=== PATIENT | male | born 1950 | race Caucasian/White ===

== ENCOUNTER 2017-06-20 11:48 | Emergency (ER) | payer MEDICARE ==
[2017-06-20 12:14] VITALS: BP 134/65
--- NOTE | 2017-06-20 12:38 | UC ---
Back Pain HPI - HPI Summary HPI Summary: Sharp stabbing mid right side back pain---began last week after cutting up a deer believes he twisted wrong, does not radiate certain positions make it worse. - History of Current Complaint Chief Complaint: UCBackPain Stated Complaint: back pain Time Seen by Provider: 06/20/17 12:20 Hx Obtained From: Patient Onset/Duration: Gradual Onset, Lasting Days - 7, Still Present Timing: Intermittent Severity Initially: Moderate Severity Currently: Moderate Back Pain: Is Discrete @ Character: Aching, Spasmodic, Stiffness Aggravating Factor(s): Movement Alleviating Factor(s): Rest, Position Associated Signs And Symptoms: Positive: Negative - Allergies/Home Medications Allergies/Adverse Reactions: Allergies Allergy/AdvReac Type Severity Reaction Status Date / Time Povidone Iodine Allergy Severe Swelling Verified 06/20/17 12:13 [From Betadine] Home Medications: Home Medications Pioglitazone TAB* [Actos TAB*] 30 mg PO DAILY 06/20/17 [History Confirmed ] PMH/Surg Hx/FS Hx/Imm Hx Endocrine History: Diabetes, Hypothyroidism, Dyslipidemia Cardiovascular History: Hypertension - Surgical History Surgical History: Yes Surgery Procedure, Year, and Place: RCT repair--ROTATOR CUFF REPAIR. Pneumothorax 1969, carpel tunnel 1971 - Family History Known Family History: Positive: None - Social History Occupation: Retired Lives: With Family Alcohol Use: None Substance Use Type: None Smoking Status (MU): Former Smoker Type: Cigarettes Length of Time of Smoking/Using Tobacco: 40 years When Did the Patient Quit Smoking/Using Tobacco: 9 years ago - Immunization History Most Recent Influenza Vaccination: [id number] Most Recent Tetanus Shot: AUG 2013 Review of Systems Constitutional: Negative Skin: Negative Eyes: Negative ENT: Negative Respiratory: Negative Cardiovascular: Negative Gastrointestinal: Negative Genitourinary: Negative Motor: Negative Neurovascular: Negative Musculoskeletal: Negative Neurological: Negative Psychological: Negative Is Patient Immunocompromised?: No All Other Systems Reviewed And Are Negative: Yes Physical Exam Triage Information Reviewed: Yes Appearance: Well-Appearing, Well-Nourished, Pain Distress - mild Vital Signs: Initial Vital Signs Temp 98 F 06/20/17 12:08 Pulse 72 06/20/17 12:08 Resp 16 06/20/17 12:08 BP 134/65 06/20/17 12:08 Pulse Ox 98 06/20/17 12:08 Vital Signs Reviewed: Yes Eye Exam: Normal Eyes: Positive: Conjunctiva Clear ENT Exam: Normal ENT: Positive: Normal ENT inspection, Hearing grossly normal. Negative: Tonsillar swelling, Tonsillar exudate, Trismus, Muffled voice, Hoarse voice Dental Exam: Normal Neck exam: Normal Neck: Positive: Supple, Nontender Respiratory Exam: Normal Respiratory: Positive: Chest non-tender, Lungs clear, Normal breath sounds, No respiratory distress, No accessory muscle use Cardiovascular Exam: Normal Cardiovascular: Positive: RRR, No Murmur, Pulses Normal, Brisk Capillary Refill Abdominal Exam: Normal Musculoskeletal Exam: Normal Musculoskeletal: Positive: Strength Intact, ROM Intact, No Edema Neurological Exam: Normal Neurological: Positive: Alert, Muscle Tone Normal Psychological Exam: Normal Skin Exam: Normal Diagnostics - Radiology No standard instances Xray Interpretation: Positive (See Comments) - no evidence of renal stones, some degenerative lumbar changes Back Pain Course/Dx - Course Course Of Treatment: muscle relaxer, pain med, follow hematria with pcp/urology - Differential Dx/Diagnosis Provider Diagnoses: lumbar strain, hematuria Discharge - Discharge Plan Condition: Stable Disposition: HOME Prescriptions: Hydrocodone-Acetaminophen [Hydrocodone/Acetaminophen 5-325 mg] 1 tab PO Q6HR PRN #15 tab MDD 4 PRN Reason: pain tiZANidine TAB* [Zanaflex TAB*] 2 mg PO TID PRN #15 tab PRN Reason: muscle spasm Patient Education Materials: Low Back Strain (ED), Hematuria (ED), Muscle Spasm (ED), Lower Back Exercises (ED), Core Strengthening Exercises (ED) Referrals: Bret Li MD [Primary Care Provider] - 1 Week
--- NOTE | 2017-06-20 12:58 | RAD ---
INDICATION: Back pain COMPARISON: None. TECHNIQUE: 3 views of the thoracic spine were obtained. FINDINGS: The lower thoracic and lumbar spine exhibits approximately 9 degrees of levoconvex curvature with the apex at the T12 vertebral body. The vertebral bodies are otherwise adequately aligned on the AP and lateral views. Degenerative changes include loss of intervertebral disc height at the lower thoracic and lumbar spine. There is anterior marginal osteophyte formation at the lower thoracic spine that appears progressive when compared to the August 19, 2013 radiograph. IMPRESSION: Degenerative changes of the lower thoracic and lumbar spine worse when compared to the August 19, 2013 radiograph.
--- NOTE | 2017-06-20 14:11 | RAD ---
Indication: Back pain, hematuria. CT of the abdomen and pelvis was performed without oral or IV contrast administration. Coronal and sagittal reconstructed images were obtained. Lung bases demonstrate no pleural fluid, nodules or masses. Heart is of normal size without evidence of pericardial effusion. Small right pleural effusion is noted. Liver is normal in size. No focal lesions or intrahepatic duct dilatation is noted. The gallbladder is partially contracted. No pericholecystic fluid or wall thickening is noted. The pancreas demonstrates no mass or pancreatic ductal dilatation. The common duct is not dilated. The spleen is normal in size. No adrenal lesions are noted. The kidneys demonstrate no hydronephrosis. Atherosclerotic aorta is noted. No retroperitoneal adenopathy is noted. CT of the pelvis demonstrates no retroperitoneal or pelvic lymphadenopathy. Diverticulosis without definite evidence of diverticulitis is noted. The appendix is visualized and is normal. The prostate is prominent with calcifications in the prostate. No hernias are noted. IMPRESSION: No evidence of obstructive uropathy is noted. Diverticulosis without definite evidence of diverticulitis.
== END 2017-06-20 13:56 | disposition home or self-care (01) ==
LOC: UCCORT 11:48
DX: S39.012A Strain of muscle, fascia and tendon of lower back, initial encounter (principal); X58.XXXA Exposure to other specified factors, initial encounter; Y92.9 Unspecified place or not applicable; R31.9 Hematuria, unspecified; E11.9 Type 2 diabetes mellitus without complications; E03.9 Hypothyroidism, unspecified; E78.5 Hyperlipidemia, unspecified; I10 Essential (primary) hypertension; Z87.891 Personal history of nicotine dependence
CPT/HCPCS: 72080; 74176; 81003; 99212; G0463

== ENCOUNTER 2018-10-13 09:17 | Emergency (ER) | payer MEDICARE ==
[2018-10-13 09:49] VITALS: BP 135/72
--- NOTE | 2018-10-13 10:27 | UC ---
Respiratory Complaint HPI - HPI Summary HPI Summary: 68 yo male with cough and congestion x 5-6 days Hx COPD has wheezing all the time wheezing has not worsened but he has a productive cough uses an inhaler but can't remember name ex smoker - History of Current Complaint Chief Complaint: UCRespiratory Stated Complaint: CHEST CONGESTION, COUGH Time Seen by Provider: 10/13/18 10:20 Hx Obtained From: Patient Onset/Duration: Gradual Onset, Lasting Days Timing: Constant Severity Initially: Mild Severity Currently: Moderate Pain Intensity: 0 Pain Scale Used: 0-10 Numeric Character: Cough: Productive Aggravating Factors: Exertion, Deep Breaths Alleviating Factors: Other Associated Signs And Symptoms: Positive: Wheezing, Sinus Discomfort Related History: Similar Episode/Dx as: - bronchitis - Allergies/Home Medications Allergies/Adverse Reactions: Allergies Allergy/AdvReac Type Severity Reaction Status Date / Time povidone-iodine Allergy Swelling Verified 10/13/18 09:37 [From Betadine] soap [From Betadine] Allergy Swelling Verified 10/13/18 09:37 Home Medications: Home Medications Amitriptyline TAB* [Elavil TAB*] 25 mg PO BEDTIME 10/13/18 [History Confirmed ] Aspirin EC TAB* [Ecotrin EC Low Dose 81 MG*] 1 tab DAILY 10/13/18 [History Confirmed 10/13/18] Atorvastatin* [Lipitor*] 80 mg PO DAILY 10/13/18 [History Confirmed 10/13/18] Enalapril TAB* [Vasotec TAB*] 5 mg PO DAILY 10/13/18 [History Confirmed 10/13/18 ] Levalbuterol HFA INHALER* [Xopenex Hfa Inhaler*] 1 puff Q4HR PRN 10/13/18 [ History Confirmed 10/13/18] Levothyroxine TAB* [Synthroid TAB*] 1 tab DAILY 10/13/18 [History Confirmed ] Pioglitazone TAB* [Actos TAB*] 1 tab DAILY 10/13/18 [History Confirmed 10/13/18] glipiZIDE TAB* [Glucotrol TAB*] 10 mg PO BID 10/13/18 [History Confirmed ] metFORMIN* [Glucophage 1000 MG TAB *] 1,000 mg BID 10/13/18 [History Confirmed 10/13/18] PMH/Surg Hx/FS Hx/Imm Hx Previously Healthy: Yes Endocrine History: Diabetes Cardiovascular History: Hypertension Respiratory History: COPD, Bronchitis - Surgical History Surgical History: Yes Surgery Procedure, Year, and Place: RCT repair--ROTATOR CUFF REPAIR. Pneumothorax 1969, carpel tunnel 1971 - Family History Known Family History: Positive: None - Social History Alcohol Use: None Substance Use Type: None Smoking Status (MU): Former Smoker Type: Cigarettes Length of Time of Smoking/Using Tobacco: 40 years When Did the Patient Quit Smoking/Using Tobacco: 9 years ago - Immunization History Most Recent Influenza Vaccination: [id number] Most Recent Tetanus Shot: AUG 2013 Review of Systems All Other Systems Reviewed And Are Negative: Yes Constitutional: Positive: Negative Skin: Positive: Negative Eyes: Positive: Negative ENT: Positive: Sinus Congestion Respiratory: Positive: Cough Cardiovascular: Positive: Negative Gastrointestinal: Positive: Negative Genitourinary: Positive: Negative Motor: Positive: Negative Neurovascular: Positive: Negative Musculoskeletal: Positive: Negative Neurological: Positive: Negative Psychological: Positive: Negative Physical Exam Triage Information Reviewed: Yes Appearance: Well-Appearing, No Pain Distress, Well-Nourished Vital Signs: Initial Vital Signs Temp 98.7 F 10/13/18 09:40 Pulse 76 10/13/18 09:40 Resp 18 10/13/18 09:40 BP 135/72 10/13/18 09:40 Pulse Ox 97 10/13/18 09:40 Vital Signs Reviewed: Yes Eyes: Positive: Conjunctiva Clear ENT: Positive: Nasal congestion, TMs normal, Uvula midline. Negative: Hearing grossly normal - decreased, Nasal drainage, Tonsillar swelling, Tonsillar exudate, Trismus, Muffled voice, Hoarse voice Neck: Positive: Supple, Nontender, No Lymphadenopathy Respiratory: Positive: No respiratory distress, No accessory muscle use, Rhonchi Cardiovascular: Positive: RRR, No Murmur Musculoskeletal: Positive: ROM Intact, No Edema Neurological: Positive: Alert Psychological Exam: Normal Skin Exam: Normal Respiratory Course/Dx - Differential Dx/Diagnosis Provider Diagnosis: Chronic obstructive pulmonary disease with acute exacerbation Discharge - Sign-Out/Discharge Documenting (check all that apply): Patient Departure All imaging exams completed and their final reports reviewed: No Studies - Discharge Plan Condition: Stable Disposition: HOME Prescriptions: Amoxicillin PO (*) [Amoxicillin 875 MG (*)] 875 mg PO BID #14 tab Patient Education Materials: Acute Bronchitis (ED) Referrals: Bret Li MD [Primary Care Provider] - 4 Days (if not better) Additional Instructions: if symptoms worsen or you fail to improve you may need a Chest XR - Billing Disposition and Condition Condition: STABLE Disposition: Home
== END 2018-10-13 10:33 | disposition home or self-care (01) ==
LOC: UCCORT 09:17
DX: J44.1 Chronic obstructive pulmonary disease with (acute) exacerbation (principal); E11.9 Type 2 diabetes mellitus without complications; I10 Essential (primary) hypertension; Z87.891 Personal history of nicotine dependence; Z88.8 Allergy status to other drugs, medicaments and biological substances; Z79.82 Long term (current) use of aspirin; Z79.84 Long term (current) use of oral hypoglycemic drugs; Z79.899 Other long term (current) drug therapy
CPT/HCPCS: 99212; G0463